=== PATIENT | female | born 1990 | race African-American/Black ===

== ENCOUNTER 2018-05-24 18:58 | Emergency (ER) | payer OTHER ==
[~2018-05-24] VITALS: Ht 160 cm; Wt 66.8 kg
[2018-05-24 22:19] VITALS: BP 136/81
== END 2018-05-24 22:22 | disposition home or self-care (01) ==
LOC: EMS 19:00
DX: S62.336A Displaced fracture of neck of fifth metacarpal bone, right hand, initial encounter for closed fracture (principal); W22.8XXA Striking against or struck by other objects, initial encounter; Y93.89 Activity, other specified; Y92.89 Other specified places as the place of occurrence of the external cause; Y99.8 Other external cause status
CPT/HCPCS: 99284